=== PATIENT | male | born 1955 | race Hispanic/Latino ===

== ENCOUNTER 2022-04-02 00:46 | Inpatient (IN) | payer SELFPAY ==
[2022-04-02] MEDS ORDERED: Ondansetron PF 4 MG/2 ML Vial ONE (01:10)
[2022-04-02 01:37] LABS: ALT (SGPT) 32 U/L (8-55); AST (SGOT) 30 U/L (5-34); Albumin 4.4 g/dL (3.4-4.8); Alkaline Phosphatase 98 U/L (40-110); Anion Gap 16 mmol/L (10-20); BUN (Urea Nitrogen) 8 mg/dL (8.4-25.7); Bilirubin, Total 1.4 mg/dL (0.2-1.2); Calc. Creatinine Clearance 0 mL/min (70-130); Calcium 8.8 mg/dL (7.8-10.44); Carbon Dioxide 21 mmol/L (23-31); Chloride 105 mmol/L (98-107); Estimated GFR 94; Globulin 3.3 g/dL (2.4-3.5); Glucose 306 mg/dL (80-115); Protein, Total 7.7 g/dL (5.8-8.1); Sodium 138 mmol/L (136-145)
[2022-04-02 01:38] LABS: Acetaminophen Less than 10.0 mcg/mL (10.0-30.0); Alcohol 285 mg/dL (Less than 10); Salicylate Less than 8.0 mg/dL (15.0-30.0)
[2022-04-02 01:41] LABS: Band 4 % (5-11); Eosinophils 2 % (0-10); Hemoglobin 16.9 g/dL (14.0-18.0); Lymphocytes 42 % (21-51); MDiff Complete? YES; Mean Corpuscular HGB CONC 34.9 g/dL (32.0-36.0); Mean Corpuscular Hemoglobin 31.4 pg (27.0-31.0); Mean Corpuscular Volume 89.8 fl (78.0-98.0); Mean Platelet Volume 7.6 fL (7.4-10.4); Monocytes 7 % (0-10); Neutrophil 45 % (42-75); Platelet Count 246 10x3/uL (130-400); RBC Distribution Width 11.5 % (11.5-14.5); Red Blood Cell (RBC) Count 5.39 mill/uL (4.70-6.10); White Blood Cell (WBC) Count 9.1 10x3/uL (4.8-10.8)
[2022-04-02] MEDS ORDERED: levETIRAcetam 500 MG/5 ML VIAL ONE (02:09)
[2022-04-02] MEDS ORDERED: LORazepam 2 MG/ML SYR.(CARPUJECT) ONE (02:09)
[2022-04-02] MEDS ORDERED: Thiamine HCl 200 MG/2 ML VIAL SLOW IVP SCH (02:30)
[2022-04-02 02:43] LABS: Amphetamine Not Detected (NotDetected); Barbiturates Screen Not Detected (NotDetected); Benzodiazepine Screen Not Detected (NotDetected); Cocaine Metabolite Screen Not Detected (NotDetected); Methadone Not Detected (NotDetected); Methamphetamine Not Detected (NotDetected); Opiate Screen Not Detected (NotDetected); Oxycodone Screen Not Detected (NotDetected); Phencyclidine (PCP) Not Detected (NotDetected); THC/Cannabinoid Screen Not Detected (NotDetected); Tricyclic Screen Not Detected (NotDetected)
[2022-04-02 03:00] LABS: Magnesium 2.2 mg/dL (1.6-2.6)
[2022-04-02] MEDS ORDERED: Magnesium 2 GM/50 ML BAG (IN WATER) ONE (03:13)
[2022-04-02] MEDS ORDERED: Diltiazem 125 MG/25 ML ONE (03:30)
[2022-04-02] MEDS ORDERED: HumaLOG 300 UNITS/3 ML VIAL SC PRN (03:31)
[2022-04-02] MEDS ORDERED: Dextrose 5% in Water 1,000 ML IV PRN (03:31)
[2022-04-02] MEDS ORDERED: Ondansetron ODT 4 MG TAB PO PRN (03:31)
[2022-04-02] MEDS ORDERED: Dextrose 50% Abboject 50 ML SYRINGE SLOW IVP PRN (03:31)
[2022-04-02] MEDS ORDERED: Lorazepam 2 MG/ML VIAL IM PRN (03:31)
[2022-04-02] MEDS ORDERED: Lorazepam 1 MG TAB PO PRN (03:31)
[2022-04-02] MEDS ORDERED: Electrolyte Replacement Protocol 1 EACH FS PRN (03:45)
[2022-04-02 04:18] LABS: #Eosinphils 0.1 thou/uL (0.0-0.7); #Lymphocytes 3.5 thou/uL (1.20-3.40); #Monocytes 0.5 thou/uL (0.11-0.59); #Neutrophils 3.2 thou/uL (1.40-6.50); %Basophils 0.1 % (0.0-1.0); %Eosinophils 1.2 % (0.0-10.0); %Lymphocytes 48.4 % (21.0-51.0); %Monocytes 6.2 % (0.0-10.0); %Neutrophils 44.1 % (42.0-75.0); Hemoglobin 16.5 g/dL (14.0-18.0); Mean Corpuscular HGB CONC 34.1 g/dL (32.0-36.0); Mean Corpuscular Hemoglobin 30.7 pg (27.0-31.0); Mean Corpuscular Volume 90.1 fl (78.0-98.0); Mean Platelet Volume 7.9 fL (7.4-10.4); Platelet Count 239 10x3/uL (130-400); RBC Distribution Width 11.5 % (11.5-14.5); Red Blood Cell (RBC) Count 5.38 mill/uL (4.70-6.10); White Blood Cell (WBC) Count 7.2 10x3/uL (4.8-10.8)
[2022-04-02 04:39] LABS: Anion Gap 18 mmol/L (10-20); BUN (Urea Nitrogen) 7 mg/dL (8.4-25.7); Calc. Creatinine Clearance 0 mL/min (70-130); Calcium 8.8 mg/dL (7.8-10.44); Carbon Dioxide 19 mmol/L (23-31); Chloride 110 mmol/L (98-107); Estimated GFR 98; Glucose 293 mg/dL (80-115); Phosphorus 3.3 mg/dL (2.3-4.7); Potassium 4.1 mmol/L (3.5-5.1); Sodium 143 mmol/L (136-145)
[2022-04-02 05:01] LABS: Troponin I Less than 0.010 ng/mL (< 0.028)
[2022-04-02] MEDS: Lorazepam 1 MG TAB PO SCH ×4 (06:08→21:08)
[2022-04-02] MEDS: Thiamine HCl 200 MG/2 ML VIAL SLOW IVP SCH (06:09)
[2022-04-02] MEDS ORDERED: Digoxin 0.5 MG/2 ML AMP ONE (06:19)
[2022-04-02] MEDS ORDERED: Digoxin 0.5 MG/2 ML AMP SLOW IVP SCH (07:00)
[2022-04-02 07:41] VITALS: BMI 28.7
[2022-04-02 08:30] LABS: SARS-CoV-2 NAA Rapid Test Not Detected (NotDetected)
[2022-04-02 08:30] LABS: Troponin I Less than 0.010 ng/mL (< 0.028)
[2022-04-02] MEDS ORDERED: Folic Acid 1 MG TAB ONE (09:00)
[2022-04-02] MEDS ORDERED: Lorazepam 1 MG TAB ONE (09:00)
[2022-04-02] MEDS: Folic Acid 1 MG TAB PO SCH (09:11)
[2022-04-02] MEDS: Multivit, Therapeutic 1 TAB PO SCH (09:30)
[2022-04-02 10:26] LABS: Bilirubin Negative (Negative); Blood, Urine Negative (Negative); Glucose, Urine (Dipstick) >=1000 mg/dL (Negative); Ketone, Urine Negative (Negative); Leukocyte Negative (Negative); Nitrite Negative (Negative); Protein, Urine (Dipstick) Negative (Neg-Trace); Urobilinogen 0.2 mg/dL (Less than 2); pH, Urine 6.5 (5.0-9.0)
[2022-04-02 10:28] LABS: Clarity Clear (Clear); Specific Gravity, Urine 1.004 (1.002-1.036)
[2022-04-03] MEDS ORDERED: Lorazepam 1 MG TAB PO PRN (03:32)
[2022-04-03] MEDS: Thiamine HCl 200 MG/2 ML VIAL SLOW IVP SCH (05:02)
[2022-04-03] MEDS: Lorazepam 1 MG TAB PO SCH ×2 (05:09→09:25)
[2022-04-03] MEDS: Multivit, Therapeutic 1 TAB PO SCH (09:24)
[2022-04-03] MEDS: Folic Acid 1 MG TAB PO SCH (09:24)
[2022-04-03 12:01] VITALS: BP 158/63; TEMP 98.3
[2022-04-04] MEDS ORDERED: Lorazepam 1 MG TAB PO PRN (03:32)
[2022-04-04] MEDS ORDERED: Lorazepam 0.5 MG TAB PO SCH (03:45)
[2022-04-05] MEDS ORDERED: Lorazepam 0.5 MG TAB PO PRN (03:32)
[2022-04-05] MEDS ORDERED: Thiamine 100 MG TAB PO SCH (03:45)
== END 2022-04-03 13:00 | disposition home or self-care (01) | DRG 896 ==
LOC: ERS 00:46 → ERHOLD 03:20 → 2NO 14:14
PROVIDERS: ADMIT Family Medicine; ATTEND Internal Medicine
DX: F10.229 Alcohol dependence with intoxication, unspecified (principal); G92.8 Other toxic encephalopathy; J96.01 Acute respiratory failure with hypoxia; F10.239 Alcohol dependence with withdrawal, unspecified; Y90.8 Blood alcohol level of 240 mg/100 ml or more; I10 Essential (primary) hypertension; I48.91 Unspecified atrial fibrillation; E11.65 Type 2 diabetes mellitus with hyperglycemia; Z20.822 Contact with and (suspected) exposure to COVID-19; Z79.84 Long term (current) use of oral hypoglycemic drugs; Z90.49 Acquired absence of other specified parts of digestive tract
CPT/HCPCS: 36415; 36416; 70450; 71045; 72125; 80053; 80306; 80307; 81003; 82140; 83735; 84100; 84484; 85025; 93005; J1160; J1650; J1953; J2060; J2405; J3411; J3475; U0002; U0003; U0005